=== PATIENT | female | born 1965 | race Caucasian/White ===

== ENCOUNTER 2017-01-09 08:00 | Emergency (ER) | payer MEDICAID, OTHER ==
[~2017-01-09] VITALS: Ht 165.1 cm; Wt 59.1 kg
--- NOTE | 2017-01-09 08:04 | ED.REPORT ---
HPI-General Illness Date of Service Jan 09, 2017 ED Provider: This is a 49-year-old female with history of IV drug use and hepatitis C presents to the emergency department for chest pain. Patient reports having chest pressure throughout her chest up into her neck and a little bit into her back for the last week. She also notes shortness of breath. This sensation is usually okay in the morning and gets worse throughout the day. Patient has had similar symptoms 3 months ago and reports having a cardiac workup in [place] which was unremarkable. She believes her pain is worse when she is anxious or stressed. She has not found anything to relieve it. She notes that she has a chronic cough with productive clear sputum and has not noticed any changes. She does mention a lot of recent stressors in life including moving from [place] to [place] 2 weeks prior and new workflow at her job. She denies fevers, chills, nausea, vomiting, abdominal pain, diarrhea, urinary changes headaches. She denies any recent extended travel or long periods of immobility. She denies any family history of heart disease. Nursing Notes Stated Complaint: CHEST PAIN Nursing Notes Reviewed: Yes Allergies: Uncoded Allergies: SULFA (Allergy, Mild, eye swelling, 01/09/17) General Time Seen by MD: 08:04 Chief Complaint Chest pain Past Medical History Past Medical History Hepatitis C Past Surgical History None Social History Patient denies drug use but per records from [facility] in [place] history of IV heroin injection into neck, as well as some methamphetamine and cocaine use. Apparently quit IV heroin in 2016 per note. Alcohol Use: Denies alcohol use Review of Systems Full Review of Systems Constitutional: Denies: Chills, Fever Respiratory: Reports: Prod cough, clear Cardiovascular: Reports: Chest pain GI: Denies: Abdominal pain Female: Denies: Dysuria, Urinary frequency, Urinary urgency Musculoskeletal: Reports: Back pain Neurologic: Denies: Headache, Vision change, Weakness Psychiatric: Reports: Anxiety, Stress Complete sys rev & neg: except as marked. Physical Exam Vital Signs Vital Signs Date Time Temp Pulse Resp B/P Pulse Ox O2 Delivery O2 Flow Rate FiO2 01/09/17 10:59 50 15 99/67 100 Room Air 01/09/17 10:55 15 99/67 100 Room Air 01/09/17 09:37 56 11 92/68 98 Room Air 01/09/17 08:06 36.7 65 14 106/68 97 Room Air Initial VS: Reviewed General/Constitutional: Well-developed, Well-nourished Head / Eyes: Atraumatic, Normocephalic, PERRL ENT: Mucous membranes moist, Conjunctiva normal, No scleral icterus Respiratory: Breath sounds normal, Clear to auscultation, No respiratory distress Cardiovascular: Regular rate & rhythm, Heart sounds normal, Intact distal pulses Abdomen / GI: Soft, No guarding, No rebound, No distention Back: No CVA tenderness Extremities: Vascular intact, Neuro intact, No swelling, No tenderness Skin: Warm, Dry Neurologic: Alert, Oriented Psychiatric: Mood/affect normal, Behavior normal, Normal thought content Tenderness/Guarding/Rebound: Positive: Tender RUQ... (Mild) Negative murphys Neurologic: Oriented X3, Speech NL, No sensory deficits, CN II - XII intact Interpretation & Diagnostics Lab Results Interpretation Result Diagram: 01/09/17 0826 01/09/17 0826 Test 01/09/17 08:26 White Blood Count 4.6th/mm3 (3.8-10.1) Red Blood Count 4.52mil/mm3 (3.90-5.20) Hemoglobin 14.8g/dL (12.0-15.6) Hematocrit 42.5% (35.0-46.0) Mean Corpuscular Volume 94.0fL (81-100) Mean Corpuscular Hemoglobin 32.7pg (27.0-35.0) Mean Corpuscular Hemoglobin Concent 34.8% (32.0-37.0) Red Cell Distribution Width 13.1% (12.3-15.4) Platelet Count 140bil/L (150-400) Neutrophils (%) (Auto) 52.9% (40-74) Lymphocytes (%) (Auto) 34.4% (14-46) Monocytes (%) (Auto) 10.3% (4-12) Eosinophils (%) (Auto) 2.0% (0-5) Basophils (%) (Auto) 0.4% (0-3) Sodium Level 140mEq/L (134-144) Potassium Level 4.3mEq/L (3.5-5.2) Chloride Level 102mEq/L (97-108) Carbon Dioxide Level 24mmol/L (18-29) Blood Urea Nitrogen 12mg/dL (6-24) Creatinine 0.42mg/dL (0.57-1.00) Estimat Glomerular Filtration Rate 230mL/min (>59) Glucose Level 94mg/dL (60-99) Calcium Level 9.2mg/dL (8.5-10.1) Magnesium Level 2.0mg/dL (1.6-2.6) Total Bilirubin 0.5mg/dL (0.0-1.2) Aspartate Amino Transf (AST/SGOT) 141U/L (0-50) Alanine Aminotransferase (ALT/SGPT) 104U/L (0-32) Alkaline Phosphatase 49U/L (25-150) Troponin T 0.010ug/L (0.0-0.011) Total Protein 7.8g/dL (6.4-8.4) Albumin 4.4g/dL (3.4-5.0) Hold Cr[place]tree Top Tube Received (Received) Re-Eval/Medical Decision Med Decision/Clinical Course In summary, 51-year-old female with a PMHx notable for Hepatitis C who presents to the ED for evaluation of nonexertional chest pressure radiating to her neck since last week. Differential includes ACS, PE, PTX, aortic dissection, myocarditis/pericarditis, abdominal etiology such as cholecystitis, MSK pain. Pain is pretty constant however minimal upon waking up gradually increasing throughout the day. Her records from [facility] from September 2016, she had initially an elevated troponin when presenting to their ED and had cardiac workup done including a myocardial perfusion imaging study which was normal.; Today her troponin is negative. HEART score of 2 given her age and history of smoking. EKG demonstrates sinus rhythm with no acute ischemic changes. No pleuritic symptoms, recent history of extended travel/immobilization, cancer, exogenous estrogen use, or surgery. She is PERC negative. No evidence of pneumothorax on chest x-ray or exam. She does mention some burning back pain, however CXR w/ no evidence of widened mediastinum, normal neuro exam, and equal pulses to bilateral upper and lower extremities; aortic dissection seems very unlikely. Neither clinical presentation, exam, or EKG seem c/w pericarditis or myocarditis. Given her history of drug abuse, endocarditis is still considered however she is afebrile without any murmurs or clinical symptoms of endocarditis. She does have some mild right upper quadrant tenderness in the setting of hepatitis C, however negative Robb's sign. Rest of labs reviewed, unremarkable except for elevated AST and ALTs likely secondary to hepatitis C. Patient given Toradol here in the ED, with significant relief of symptoms. Cause of her chest pain does not seem to be emergent. She should have further workup of her transaminitis outpatient. Patient agreeable to plan, no further questions. Patient Status: Condition improved Re-Evaluation/Progress Note: Patient had significant improvement in symptoms with Toradol. Counseled Regarding: Diagnosis, Lab results, Need for follow-up, When/why to return to ED Discharge & Departure Primary Impression: Chest pain Chest pain type: unspecified Qualified Code: R07.9 - Chest pain, unspecified Additional Impression: Transaminitis Disposition: Home Discharge Condition All VS Reviewed: Yes Condition: Stable Patient Instructions: Chest Pain (DC) Additional Instructions: Chest pain can be caused by a range of conditions, from not serious to life- threatening. It may be caused by a heart attack or a blood clot in your lungs. Sometimes chest pain or pressure is caused by poor blood flow to your heart ( angina). Infection, inflammation, or a fracture in the bones or cartilage in your chest can cause pain or discomfort. Chest pain can also be a symptom of a digestive problem, such as acid reflux or a stomach ulcer. An anxiety attack or a strong emotion such as anger can also cause chest pain. It is important to follow up with your healthcare provider to find the cause of your chest pain. Call 911 if: You have any of the following signs of a heart attack: Squeezing, pressure, or pain in your chest that lasts longer than 5 minutes or returns Discomfort or pain in your back, neck, jaw, stomach, or arm Trouble breathing Nausea or vomiting Lightheadedness or a sudden cold sweat, especially with chest pain or trouble breathing Return to the emergency department if: You have chest discomfort that gets worse, even with medicine. You cough or vomit blood. Your bowel movements are black or bloody. You cannot stop vomiting, or it hurts to swallow. In addition, you have elevated liver enzymes. I think this may be related to your hepatitis and you need to be reevaluated for this. Please contact the clinic to make a follow up appointment tomorrow. Referrals: Ro Barrios MD Attending Statement I saw and evaluated the patient in conjunction with the resident. I agree with the plan and findings as documented above. Very careful return precautions were discussed with the patient, as well as the need for close outpatient follow-up. Patient was agreeable to this and had no further questions. copies to: Ro Barrios MD, William B MD Jan 09, 2017 08:04 Leon Day DO Jan 09, 2017 10:30
[2017-01-09 08:06] VITALS: BP 106/68; PULSE 65; RESP 14; O2SAT 97
[2017-01-09 08:36] LABS: BASOPHILS % (AUTO) 0.4 % (0-3); MONOCYTES % (AUTO) 10.3 % (4-12); Mean Corpuscular Hemoglobin 32.7 pg (27.0-35.0); NEUTROPHILS % (AUTO) 52.9 % (40-74); Platelet Count 140 bil/L (150-400)
[2017-01-09 09:01] LABS: TROPONIN T 0.01 ug/L (0.0-0.011)
[2017-01-09 09:37] VITALS: BP 92/68; PULSE 56; RESP 11; O2SAT 98
[2017-01-09 10:55] VITALS: BP 99/67; RESP 15; O2SAT 100
[2017-01-09 10:59] VITALS: BP 99/67; PULSE 50; RESP 15; O2SAT 100
--- NOTE | 2017-01-09 16:55 | DRSVH ---
PROCEDURE: X-RAY CHEST ONE VIEW, PORTABLE ([id number]) INDICATIONS: CHEST PAIN TECHNIQUE: One view of the chest was acquired. COMPARISON: [facility], CR, CHEST 2VW, 04/26/2008, 12:16. FINDINGS: Surgical changes and devices: None. Lungs and pleura: No pleural effusions or pneumothorax. Lungs are clear. Mediastinum: Mediastinal contours appear normal. Heart size is normal. Bones and chest wall: No suspicious bony lesions. Overlying soft tissues appear unremarkable. IMPRESSION: No acute cardiopulmonary disease. Dictated by: Nathaniel DUNNE Interpreted: Karen Mccall MD on 01/09/2017 at 8:34 Approved by: Nick Nicole M.D. on 01/09/2017 at 16:53
== END 2017-01-09 11:00 | disposition home or self-care (01) ==
LOC: SED 08:00
DX: R74.0 Nonspecific elevation of levels of transaminase and lactic acid dehydrogenase [LDH] (principal); R07.89 Other chest pain; R06.02 Shortness of breath
CPT/HCPCS: 36415; 71010; 80053; 83735; 84484; 85025; 93005; 96372; 99285; J1885